=== PATIENT | female | born 1990 | race Caucasian/White ===

== ENCOUNTER 2017-02-28 11:42 | Emergency (ER) | payer OTHER ==
[2017-02-28] MEDS ORDERED: LIDOCAINE 1%, 20ML ONE (12:30)
[2017-02-28] MEDS ORDERED: LORazepam 1MG TABLET ONE (12:30)
[2017-02-28] MEDS ORDERED: MICROFIBRILLAR COLLAGEN 1 GM TP ONE (12:54)
== END 2017-02-28 13:25 ==
LOC: ED 11:42
DX: S61.211A Laceration without foreign body of left index finger without damage to nail, initial encounter (principal); S60.413A Abrasion of left middle finger, initial encounter; J45.909 Unspecified asthma, uncomplicated; Z79.899 Other long term (current) drug therapy; W26.0XXA Contact with knife, initial encounter; Y93.89 Activity, other specified; Y92.89 Other specified places as the place of occurrence of the external cause; Y99.8 Other external cause status
CPT/HCPCS: 99283